=== PATIENT | female | born 1960 | race Caucasian/White ===

== ENCOUNTER → 2024-09-04 12:13 | Outpatient (BNVA) | payer OTHER, SELFPAY | PROVIDERS: Family Provider Nurse Practitioner Family; PCP Nurse Practitioner Family; Visit Provider Nurse Practitioner | DX: S59.911A Unspecified injury of right forearm, initial encounter (principal); W23.0XXA Caught, crushed, jammed, or pinched between moving objects, initial encounter | CPT/HCPCS: 73090 ==

== ENCOUNTER 2025-03-15 14:01 | Observation (INO) | payer MEDICAID, SELFPAY ==
[2025-03-15] VITALS (15 sets, daily range): BP systolic 172–223; BP diastolic 89–122; PULSE 70–93; RESP 16–22; TEMP 36.8; O2SAT 95–98; BMI 21.2
--- NOTE | 2025-03-15 14:15 | CT_ITS ---
WS: [id number] CT HEAD NONCONTRAST HISTORY: stroke symptoms, right-sided weakness and difficulty speaking. RIGHT facial droop. TECHNIQUE: Contiguous axial imaging performed through the brain. Bone and soft tissue windows. Sagittal and coronal reformats reviewed. All CT scans at [facility] use at least one of these dose optimization techniques: automated exposure control; mA and/or kV adjustment per patient size (includes targeted exams where dose is matched to clinical indication); or iterative reconstruction. DLP: 1016.65 mGy COMPARISON: 02/27/2013 No acute intracranial hemorrhage, midline shift or mass effect. Moderate atrophy and small vessel disease. Multiple small lacunar infarcts in the thalamus. Small lacunar infarct on the RIGHT may be in the internal capsule. These are not acute infarcts. Progression of chronic ischemic disease and lacunar in since 2012. Ventricles: Normal size with no hydrocephalus. Paranasal sinuses: As visualized are clear. Mastoid air cells: Well pneumatized. Calvarium and scalp: Skull is intact with no soft tissue edema or swelling. CT/CT head thrombolytic 02470 IMPRESSION: 1. No acute intracranial hemorrhage or edema. 2. Small remote lacunar infarcts in the thalami. New since 2012. There is prob ably also a chronic lacunar in the adjacent RIGHT internal capsule. Notified Priya Gregorio MD at 03/15/2025 2:24 PM.
--- NOTE | 2025-03-15 14:18 | ECG_ITS ---
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 Measurements Intervals [place] Rate: 85 P: 146 IL: 130 QRS: -39 QRSD: 89 T: 150 QT: 374 QTc: 446 Interpretive Statements ECTOPIC ATRIAL RHYTHM LEFT ATRIAL ENLARGEMENT [-0.15mV P-WAVE IN V1/V2] INDETERMINATE AXIS POSSIBLE RIGHT VENTRICULAR CONDUCTION DELAY [RSR (QR) IN V1/V2] MODERATE ST DEPRESSION [0.05+ mV ST DEPRESSION] ABNORMAL QRS-T ANGLE [QRS-T AXIS DIFFERENCE > 60] No previous ECG available for comparison Electronically Signed On 03-16-2025 08:44:15 CDT by Letha Alicia M.D. [email or web address] [email or web address]
--- NOTE | 2025-03-15 14:18 | XR_ITS ---
WS: [id number] Portable AP upright chest, 03/15/2025 Clinical Data: Weakness Comparison: Portable chest, 02/27/2013 Findings: No nodules, masses or effusions are seen. The heart is normal. The pulmonary vascularity is not increased. No pneumonia or pneumothorax is seen. The aortic arch is slightly tortuous. There is a large hiatal hernia behind the heart. There are monitor leads on the chest wall. XR/XR chest 1V portable [id number] Impression: Atherosclerosis.
--- NOTE | 2025-03-15 14:25 | PC.PHAR ---
pharmacy confirms no meds in several years
[2025-03-15 14:30] LABS: Glucose Point of Care 107 mg/dL (70-110)
--- NOTE | 2025-03-15 14:34 | W.ED.NEUROSD ---
HPI - Neuro Symptoms/Deficit General: Chief Complaint: Neuro Symptoms/Deficit Stated Complaint: R side weakness,diffucult speaking,post stroke Time Seen by Provider: 03/15/25 14:17 History of Present Illness: 65-year-old female who currently takes no medications and family states she has a history of congestive heart failure but has been off meds for a while who presents emergency room with slurred speech and facial droop with some confusion. Last known well time was last night when her and her went to bed. He says she had woken up before him and she had fallen and has an abrasion on her arm. No known head injury. He was at that point he noticed around 9 AM that she had slurred speech with quite a bit of difficulty talking and some right sided facial droop. No obvious focal motor deficits. When she walks she is slightly unsteady but does not seem to lean to 1 side of the other. No obvious visual field deficits. Family says she has improved some but still does have slurred speech. They say her speech is normally very clear. Related Data Home Medications ?Medication ?Instructions ?Recorded ?Confirmed No Known Home Medications 09/04/24 03/15/25 Allergies Allergy/AdvReac Type Severity Reaction Status Date / Time iodine Allergy Severe ALGY-Anaphy Unverified 03/15/25 15:46 laxis ibuprofen Allergy ADR-Gastrointestinal Verified 09/04/24 12:01 Upset see food Allergy ALGY-Hives Uncoded 09/04/24 12:02 Review of Systems Narrative: Constitutional symptoms: Negative except as documented in HPI. Skin symptoms: Negative except as documented in HPI. Eye symptoms: Negative except as documented in HPI. ENMT symptoms: Negative except as documented in HPI. Respiratory symptoms: Negative except as documented in HPI. Cardiovascular symptoms: Negative except as documented in HPI. Gastrointestinal symptoms: Negative except as documented in HPI. Genitourinary symptoms: Negative except as documented in HPI. Musculoskeletal symptoms: Negative except as documented in HPI. Neurologic symptoms: Negative except as documented in HPI. Psychiatric symptoms: Negative except as documented in HPI. Endocrine symptoms: Negative except as documented in HPI. PFSH ED PFSH: Social History Smoking and tobacco/nicotine status: unknown if used tobacco/nicotine NIH stroke score NIHSS: Level Of Consciousness Questions - 1b: Both Correct Level Of Consciousness Commands - 1c: Both Correct Best Gaze - 2: Normal Visual Stoner - 3: No Visual Loss Facial Palsy - 4: Partial Paralysis Motor Arm Right - 5: No Drift Motor Arm Left - 5: No Drift Motor Leg Right - 6: No Drift Motor Leg Left - 6: No Drift Limb Ataxia - 7: Absent Sensory - 8: Normal Best Language - 9: Mild/Moderate Aphasia Dysarthia - 10: Mild/Moderate Dysarthia Extinction And Inattention - 11: 0 Physical Exam Narrative: EXAM NARRATIVE: General: Alert, no acute distress. Skin: Warm, dry. Head: Normocephalic, atraumatic. Neck: Supple, trachea midline. Eye: Extraocular movements are intact. Ears, nose, mouth and throat: mucosa moist. Cardiovascular: Regular, Normal peripheral perfusion. Respiratory: Lungs are clear to auscultation, respirations are non-labored, breath sounds are equal, Symmetrical chest wall expansion. Gastrointestinal: Soft, Nontender, Non distended Musculoskeletal: Normal ROM, no deformity. Neurological: Alert and oriented, No focal neurological deficit observed. Psychiatric: Cooperative, appropriate mood & affect. Course Vital Signs: Vital signs: Vital Signs Temperature 98.2 F 03/15/25 14:10 Pulse Rate 85 03/15/25 14:36 Respiratory Rate 16 03/15/25 14:10 Blood Pressure 223/118 03/15/25 14:36 Pulse Oximetry 96 03/15/25 14:36 Oxygen Delivery Me thod Room Air 03/15/25 14:36 MDM - Neuro Symptoms/Deficit Medical Decision Making Medical decision making: Differential diagnosis for patient with focal neurologic deficit(s) includes but not limited to and based on the above HPI, review of systems and physical exam: ischemic stroke, hemorrhagic stroke and embolic stroke secondary to atrial fibrillation), TIA, Yang's palsey, metabolic encephalopathy with previous stroke. Orders placed to evaluate differential diagnosis based on the above differential, HPI and physical exam NIH Stroke Scale/Score (NIHSS) from [email or web address] on 03/15/2025 * All calculations should be rechecked by clinician prior to use RESULT SUMMARY: 4 points NIH Stroke Scale INPUTS: 1A: Level of consciousness ?> 0 = Alert; keenly responsive 1B: Ask month and age ?> 0 = Both questions right 1C: 'Blink eyes' & 'squeeze hands' ?> 0 = Performs both tasks 2: Horizontal extraocular movements ?> 0 = Normal 3: Visual stoner ?> 0 = No visual loss 4: Facial palsy ?> 2 = Partial paralysis (lower face) 5A: Left arm motor drift ?> 0 = No drift for 10 seconds 5B: Right arm motor drift ?> 0 = No drift for 10 seconds 6A: Left leg motor drift ?> 0 = No drift for 5 seconds 6B: Right leg motor drift ?> 0 = No drift for 5 seconds 7: Limb Ataxia ?> 0 = No ataxia 8: Sensation ?> 0 = Normal; no sensory loss 9: Language/aphasia ?> 1 = Mild-moderate aphasia: some obvious changes, without significant limitation 10: Dysarthria ?> 1 = Mild-moderate dysarthria: slurring but can be understood 11: Extinction/inattention ?> 0 = No abnormality Last known well time I confirmed with family that the last known well time was last evening around 9 PM. She woke up around 9 AM this morning and apparently symptoms were present at that time. Patient's screening head CT was negative but she will not allow a CTA as she had a severe allergy to contrast in the past even with pretreatment she refuses. Patient is outside the window for TNKase. She does not have extreme stroke symptoms so doubtful this is a large vessel issue and she is likely out of the window for that if it were. No neurology consult at this time. Neurology not on-call here. EKG: Time 1414. Rate 116. Sinus tachycardia, No ST-T changes, no ectopy, normal [place] & QRS intervals, This was reviewed and interpreted by myself the ER physician at 1418. CT head: No acute intracranial process. no intracranial hemorrhage, no evidence of infarct. no evidence of acute fracture.This was reviewed and interpreted by myself the ER physician. Chest x-ray: No acute process. No infiltrate. No pneumothorax. This was reviewed and interpreted by myself the emergency room physician. I also reviewed the radiology report. Lab Review: Laboratory results were reviewed and interpreted by myself the emergency room physician. No leukocytosis. No anemia. No renal failure. Urinalysis is negative for infection. Urine drug screen is negative. Alcohol level is negative. Liver enzymes are normal. I reviewed the patient's medical record. Reexamination: Patient still has significant facial droop and some slurred speech. Blood pressure has continued to rise. We discussed at length that she needs admission for further workup and initiation of preventative measures. She agrees. Swallow study being done. Patient is asking for something to drink. Consultation: I spoke with Dr. Mcclelland who is on-call for the hospitalist service who agrees to admission to the ICU. Assessment and plan: Cerebrovascular accident Malignant hypertension Slurred speech/dysarthria Right-sided facial droop ?Aspirin in the emergency room. Ultrasound of the carotids was ordered and pending. Patient needs further evaluation which may include echocardiogram and cardiac monitoring for dysrhythmias. Blood pressure control. -I discussed the patient with the hospitalist on-call who is admitting the patient. - Discussed findings and plan with patient. Answered any questions. - All laboratory values were reviewed and interpreted personally by myself, the ER physician - All imaging was reviewed and interpreted personally by myself, the ER physician. - Evaluation and treatment of this problem were appropriate in the emergency setting Lab Data 03/15/25 14:20 03/15/25 14:[address] 03/15/25 14:15 IMPRESSION: 1. No acute intracranial hemorrhage or edema. 2. Small remote lacunar infarcts in the thalami. New since 2012. There is probably also a chronic lacunar in the adjacent RIGHT internal capsule. Notified Priya Gregorio MD at 03/15/2025 2:24 PM. Chest X-Ray 03/15/25 14:18 Impression: Atherosclerosis. Laboratory Results WBC 8.01 10^3/uL (3.29-11.43) 03/15/25 14:20 RBC 5.29 10^6/uL (3.85-5.65) 03/15/25 14:20 Hgb 15.50 g/dL (11.27-16.99) 03/15/25 14:20 Hct 48.5 % (36-47) H 03/15/25 14:20 MCV 91.7 fl (85-98) 03/15/25 14:20 MCH 29.3 pg (27-33) 03/15/25 14:20 MCHC 32.0 g/dL (30-55) 03/15/25 14:20 RDW 13.3 % (12.1-15.1) 03/15/25 14:20 Plt Count 187 10^3/cmm (157-399) 03/15/25 14:20 MPV 10.4 fL (7.4-10.4) 03/15/25 14:20 Neut % (Auto) 65.2 % 03/15/25 14:20 Lymph % (Auto) 23.1 % 03/15/25 14:20 [place] % (Auto) 8.9 % 03/15/25 14:20 Eos % (Auto) 1.7 % 03/15/25 14:20 Baso % (Auto) 0.9 % 03/15/25 14:20 Neut # (Auto) 5.22 10^3/uL (1.8-7.7) 03/15/25 14:20 Lymph # (Auto) 1.9 10^3/uL (0.8-4.8) 03/15/25 14:20 [place] # (Auto) 0.7 10^3/uL (0.2-0.9) 03/15/25 14:20 Eos # (Auto) 0.1 10^3/uL (0.0-0.8) 03/15/25 14:20 Baso # (Auto) 0.1 10^3/uL (0.0-0.1) 03/15/25 14:20 Nucleated RBC % (auto) 0 % 03/15/25 14:20 Nucleated RBCs # 0.0 /100WBC 03/15/25 14:20 PT 13.40 SECONDS (12.1-14.9) 03/15/25 14:20 INR 0.95 (0.8-1.2) 03/15/25 14:20 APTT 27.6 SECONDS (23.9-36.7) 03/15/25 14:20 Sodium 141 mmol/L (136-145) 03/15/25 14:20 Potassium 4.3 mmol/L (3.5-5.1) 03/15/25 14:20 Chloride 104 mmol/L (98-107) 03/15/25 14:20 Carbon Dioxide 23 mmol/L (22-29) 03/15/25 14:20 Anion Gap 18.3 (5-19) 03/15/25 14:20 BUN 6 mg/dL (8-23) L 03/15/25 14:20 Creatinine 0.7 mg/dL (0.5-0.9) 03/15/25 14:20 GFR Calculation 84.5 mL/min (90-130) L 03/15/25 14:20 Glucose 103 mg/dL (65-115) 03/15/25 14:20 POC Glucose 107 mg/dL (70-110) 03/15/25 14:26 Calculated Osmolality 290 mOsm/kg (285-295) 03/15/25 14:20 Lactic Acid 1.0 mmol/L (0.5-2.2) 03/15/25 14:20 Calcium 9.5 mg/dL (8.5-10.5) 03/15/25 14:20 Total Bilirubin 0.4 mg/dL (0.15-1.2) 03/15/25 14:20 AST 19 U/L (0-32) 03/15/25 14:20 ALT 13 U/L (0-33) 03/15/25 14:20 Alkaline Phosphatase 107 U/L (35-105) H 03/15/25 14:20 C-Reactive Protein 6.7 mg/L (0.0-4.9) H 03/15/25 14:20 Total Protein 7.7 g/dL (6.6-8.7) 03/15/25 14:20 Albumin 4.4 g/dL (3.5-5.2) 03/15/25 14:20 Globulin 3.3 g/dL (1.3-4.6) 03/15/25 14:20 Urine Color Yellow (Yellow) 03/15/25 14:59 Urine Appearance Clear (CLEAR) 03/15/25 14:59 Urine pH 7.0 (5-7) 03/15/25 14:59 Ur Specific [place] 1.003 (1.005-1.030) L 03/15/25 14:59 Urine Protein Negative (Negative) 03/15/25 14:59 Urine Glucose (UA) Negative (Normal) 03/15/25 14:59 Urine Ketones Negative (Negative) 03/15/25 14:59 Urine Blood Negative (Negative) 03/15/25 14:59 Urine Nitrate Negative (Negative) 03/15/25 14:59 Urine Bilirubin Negative (Negative) 03/15/25 14:59 Urine Urobilinogen 0.2 mg/dL (Negative) 03/15/25 14:59 Ur Leukocyte Esterase Negative (Negative) 03/15/25 14:59 Urine RBC 0-2 /hpf (0-2) 03/15/25 14:59 Urine WBC 0-5 /hpf (0-5) 03/15/25 14:59 Ur Squamous Epith Cells 0-5 /hpf (0-5) 03/15/25 14:59 Amorphous Sediment Not Reportable 03/15/25 14:59 Urine Bacteria None seen /hpf (NONE) 03/15/25 14:59 Hyaline Casts 0-4 /lpf H 03/15/25 14:59 Salicylates < 0.3 mg/dL (3-10) L 03/15/25 14:20 Urine Opiates Screen Negative ng/mL (Negative) 03/15/25 14:59 Acetaminophen < 5.0 ug/mL (10-30) L 03/15/25 14:20 Ur Barbiturates Screen Negative ng/mL (Negative) 03/15/25 14:59 Ur Phencyclidine Scrn Negative ng/mL (Negative) 03/15/25 14:59 Ur Amphetamines Screen Negative ng/mL (Negative) 03/15/25 14:59 U Benzodiazepines Scrn Negative ng/mL (Negative) 03/15/25 14:59 Urine Cocaine Screen Negative ng/mL (Negative) 03/15/25 14:59 U Marijuana (THC) Screen Negative ng/mL (Negative) 03/15/25 14:59 Ethyl Alcohol < 10 mg/dL (0-10) 03/15/25 14:20 All radiology interpretation(s) finalized by discharge Discharge Plan Discharge Patient Disposition: Admitted As Inpatient Clinical Impression: Cerebrovascular accident, Malignant hypertension, Facial droop, Dysarthria Condition: Stable Coding Level of Care Code ED 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
[2025-03-15 14:44] LABS: Basophils # 0.1 10^3/uL (0.0-0.1); Basophils % 0.9 %; Eosinophils # 0.1 10^3/uL (0.0-0.8); Eosinophils % 1.7 %; Hematocrit 48.5 % (36-47); Lymphocytes # 1.9 10^3/uL (0.8-4.8); Lymphocytes % 23.1 %; Mean Corpuscular Hemoglobin 29.3 pg (27-33); Mean Corpuscular Volume 91.7 fl (85-98); Mean Platelet Volume 10.4 fL (7.4-10.4); Monocytes # 0.7 10^3/uL (0.2-0.9); Monocytes % 8.9 %; Neutrophils # 5.22 10^3/uL (1.8-7.7); Neutrophils % 65.2 %; Nucleated Red Blood Cells % 0 %; Platelet Count 187 10^3/cmm (157-399); Red Blood Count 5.29 10^6/uL (3.85-5.65); Red Cell Distribution Width 13.3 % (12.1-15.1); White Blood Count 8.01 10^3/uL (3.29-11.43)
[2025-03-15 14:54] LABS: INR 0.95 (0.8-1.2); Partial Thromboplastin Time 27.6 SECONDS (23.9-36.7)
[2025-03-15] MEDS: aspirin 81 mg Chew Tablet 324 MG PO (15:02)
--- NOTE | 2025-03-15 15:08 | USCV_ITS ---
Nabor Monica Age: 65 Gender: F : 1960 Exam Date: 03/15/2025 15:30 Ordering Phys: Priya Gregorio MD Technologist: Exam Location: [facility] [place] Indication: tia Risk Factors: Previous Vascular Surgery: Right Brachial BP: / Left Brachial BP: / Right Left Velocity (cm/s) Spectral Plaque Velocity (cm/s) Spectral Plaque Syst/Diast Broadening Syst/Diast Broadening 54.30/ 16.70 Prox CCA 80.40 / 25.20 53.00/ 15.40 Mid CCA 64.00 / 14.00 55.60/ 16.70 Distal CCA 36.50 / 9.50 58.20/ 12.80 Prox ICA 48.00 / 13.00 93.40/ 25.90 Mid ICA 45.80 / 13.00 97.80/ 30.30 Distal ICA 82.60 / 29.60 43.90 ECA 66.60 1.80 ICA/CCA 2.30 Vertebral Antegrade 64.50/ 19.20 cm/s 77.90/ 0.00 cm/s Bi Subclavian Bi 57.70 61.00 FINDINGS Comparison: none available. No significant elevation of systolic or diastolic velocities. Waveforms are normal. Diffuse, mild bilateral scattered calcified plaque and intimal thickening throughout the common carotid arteries and extending through the bifurcation. CONCLUSIONS Bilateral ICA stenosis less than 50%. Dr. Kimberley Laird DO (Electronically Signed) Final Date: 16 March 2025 07:49 S
[2025-03-15 15:09] LABS: Alanine Aminotransferase 13 U/L (0-33); Albumin Level 4.4 g/dL (3.5-5.2); Alkaline Phosphatase 107 U/L (35-105); Anion Gap 18.3 (5-19); Aspartate Amino Transferase 19 U/L (0-32); Blood Urea Nitrogen 6 mg/dL (8-23); C Reactive Protein 6.7 mg/L (0.0-4.9); Calcium 9.5 mg/dL (8.5-10.5); Carbon Dioxide 23 mmol/L (22-29); Chloride 104 mmol/L (98-107); Creatinine Clr Calc Pharmacy 69.1022; Globulin 3.3 g/dL (1.3-4.6); Glomerular Filtration Rate 84.5 mL/min (90-130); Glucose 103 mg/dL (65-115); Osmolality Calculated 290 mOsm/kg (285-295); Potassium 4.3 mmol/L (3.5-5.1); Sodium 141 mmol/L (136-145); Total Bilirubin 0.4 mg/dL (0.15-1.2); Total Protein 7.7 g/dL (6.6-8.7)
[2025-03-15 15:10] LABS: Acetaminophen < 5.0 ug/mL (10-30); Alcohol Level < 10 mg/dL (0-10); Salicylate < 0.3 mg/dL (3-10)
[2025-03-15 15:13] LABS: Bilirubin Urine Negative (Negative); Blood Urine Negative (Negative); Glucose Urine UA Negative (Normal); Ketones Urine Negative (Negative); Leukocyte Esterase Urine Negative (Negative); Nitrate Urine Negative (Negative); Protein Urine Negative (Negative); Specific Gravity, Urine 1.003 (1.005-1.030); Urine Appearance Clear (CLEAR); Urine Color Yellow (Yellow); Urobilinogen Urine 0.2 mg/dL (Negative)
[2025-03-15 15:16] LABS: Bacteria Urine None Seen /hpf; Hyaline Casts Urine 0-4 /lpf; RBC Urine 0-2 /hpf (0-2); Squamous Epithelial Cell Urine 0-5 /hpf (0-5); WBC Urine 0-5 /hpf (0-5)
[2025-03-15 16:00] LABS: Amphetamines Screen Urine Negative (Negative); Barbiturates Screen Urine Negative (Negative); Benzodiazepines Screen Urine Negative (Negative); Cocaine Screen Urine Negative (Negative); Opiate Screen Urine Negative (Negative); PCP Screen Urine Negative (Negative); THC Screen Urine Negative (Negative)
[2025-03-15] MEDS: labetalol 5 mg/mL SDV 20mL 20 MG IVP (16:05)
--- NOTE | 2025-03-15 17:02 | P.HP_ITS ---
Providers/Chief Complaint 2 Primary Care Provider: Luis E Buitrago Chief Complaint: R side weakness,diffucult speaking,post stroke History of Present Illness Monica Tomlin is a 65 year old female with no significant past medical history presented with slurred speech, facial distortion, abnormal gait since this morning. As per the who is at bedside reported that she was all well until 10:30 PM last night. They have watched a movie together and went to bed. He woke up at 9:00 AM this morning when he noticed that she had difficulty speaking was using sign language and had difficulty walking. As per the patient she went to bed all well last night, woke up early this morning, got up from the bed, tripped and fell. She did not hit her head but had abrasion injury to the right arm. She also noticed herself to have slow and abnormal speech. Denies any complaint of fever, cough, chest pain, shortness of breath, headache, dizziness, palpitations, nausea/vomiting, diarrhea or urinary complaints. Denies any recent history of travel or sick contact. Her last doctor's visit was 2 months ago for right arm tingling and numbness. Blood pressure at that time was found to be normal. Review of Systems 2 General: Reports: 10 or more systems reviewed and unremarkable except in HPI and below Medications/Allergies Home Medications ?Medication ?Instructions ?Recorded ?Confirmed ?Last Taken ?Type No Known Home Medications 09/04/2402/27 Unknown History Allergies Allergy/AdvReac Type Severity Reaction Status Date / Time iodine Allergy Severe ALGY-Anaphy Unverified 03/15/25 15:46 laxis ibuprofen Allergy ADR-Gastrointestinal Verified 09/04/24 12:01 Upset see food Allergy ALGY-Hives Uncoded 09/04/24 12:02 PFSH Acute 2 PFSH: Social History Smoking and tobacco/nicotine status: unknown if used tobacco/nicotine Vitals/I&O/Wt Last Vital Signs Temp 98.2 F 03/15/25 14:10 Pulse 85 03/15/25 14:36 Resp 16 03/15/25 14:10 BP 223/118 03/15/25 14:36 Pulse Ox 96 03/15/25 14:36 O2 Del Method Room Air 03/15/25 14:36 Weight last 48 hrs Weight 54.431 kg Physical Exam 2 Narrative: She is alert awake oriented x 3, not in acute distress Chest clear to auscultation bilaterally Cardiovascular normal heart sounds no murmurs Abdomen soft nontender nondistended normal bowel sounds Extremities no edema noted bilateral lower extremity Neurological-cranial nerves intact, 5/5 power bilateral upper and lower extremity, no sensory deficits, right-sided facial droop present, dysarthria Data 03/15/25 14:20 03/15/25 14:20 Micro: Microbiology 03/15/25 15:20 Blood Culture - Preliminary Blood SPECIMEN COLLECTED 03/15/25 15:15 Blood Culture - Preliminary Blood SPECIMEN COLLECTED A&P Assessment and plan (1) Cerebrovascular accident: (2) Malignant hypertension: (3) Facial droop: (4) Dysarthria: Plan Monica Tomlin is a 65 year old female with no significant past medical history presented with slurred speech, facial distortion, abnormal gait since this morning. As per the who is at bedside reported that she was all well until 10:30 PM last night. They have watched a movie together and went to bed. He woke up at 9:00 AM this morning when he noticed that she had difficulty speaking was using sign language and had difficulty walking. As per the patient she went to bed all well last night, woke up early this morning, got up from the bed, tripped and fell. She did not hit her head but had abrasion injury to the right arm. She also noticed herself to have slow and abnormal speech. #Acute stroke-etiology unknown She was last seen well at 10:30 PM last night. Patient walked into ER at 12 noon. Neurological exam-cranial nerves intact, 5/5 power bilateral upper and lower extremity, no sensory deficits, right-sided facial droop present, dysarthria CT head without contrast showedMPRESSION: 1. No acute intracranial hemorrhage or edema. 2. Small remote lacunar infarcts in the thalami. New since 2012. There is probably also a chronic lacunar in the adjacent RIGHT internal capsule. Received aspirin 324 mg x 1, labetalol 20 mg x 1 and hydralazine 10 mg x 1 IV hydralazine 10 mg every 6 hours as needed for SBP>220 and DBP>120. If blood pressure still elevated can start on Cardene drip and titrate to a goal of SBP 180-220 and DBP 100-120 Will do aspirin 81 mg daily, Lipitor 40 mg daily and plavix 75mg daily Labs reviewed and are acceptable Chest x-ray negative for acute findings UA negative U tox negative Will check echo Follow-up carotid duplex bilateral Will do MRI brain without contrast in a.m. Check lipid profile, TSH Bedside swallow eval Speech and swallow eval for N.p.o. for now PT/OT eval GI prophylaxis with IV Pepcid 20 mg twice daily DVT prophylaxis with SCD CODE STATUS discussed with patient and family, she is full code for now PDMP PDMP Reviewed: Not Reviewed Attestations 2 Medical Necessity Statement*: She needs continued hospitalization not crossing 2 midnights for management of acute stroke with telemetry monitoring, blood pressure control, physical therapy and MRI brain Time Spent in Patient Care: 45 minutes Coding Level of Care Code Acute Code for Chg Fwd Diagnoses Cerebrovascular accident I63.9 Malignant hypertension I10 Facial droop R29.810 Dysarthria R47.1 Time Spent (min) 45
[2025-03-15] MEDS: hyDRALAzine 20 mg/mL INJ 1 mL 10 MG IVP (17:11)
--- NOTE | 2025-03-15 17:19 | USCV_ITS ---
Monica Tomlin Age: 65 Gender: F : 1960 Exam Date: 03/15/2025 19:20 Ordering Phys: Denita Mcclelland MD Technologist: YVES Exam Location: [facility] [place] [facility] [place] Indication: acute stroke slurred speech, ataxia BP: 223 / 118 HR: 70 Rhythm: Sinus Technical Quality: Adequate MEASUREMENTS (Male / Female) Normal Values 2D ECHO LV Diastolic Diameter PLAX 3.0 cm 4.2 - 5.9 / 3.9 - 5.3 cm IVS Diastolic Thickness 1.2 cm 0.6 - 1.0 / 0.6 - 0.9 cm IVS Systolic Thickness 1.4 cm LVPW Diastolic Thickness 1.1 cm 0.6 - 1.0 / 0.6 - 0.9 cm LVPW Systolic Thickness 1.6 cm LVOT Diameter 1.6 cm LV Ejection Fraction 2D Teich 58.3 % LV Ejection Fraction MOD 4C 67.4 % LV Ejection Fraction MOD 2C 78.3 % LV Ejection Fraction 2C AL 81.6 % LA Diameter 2.6 cm Aorta at Sinotubular Diameter 2.7 cm IVC Diameter 0.8 cm M-MODE LA Ao Ratio MM 1.4 AV Cusp Separation MM 1.4 cm DOPPLER AV Peak Velocity 121.0 cm/s LVOT Peak Velocity 121.0 cm/s AV Area Cont Eq vti 1.7 cm squared AV Area Cont Eq pk 2.0 cm squared MV Peak Velocity 104.0 cm/s MV Area PHT 1.7 cm squared Mitral E to A Ratio 0.7 TV Peak Velocity 214.5 cm/s TR Peak Velocity 225.0 cm/s TR Peak Gradient 20.3 mmHg TV Peak E Velocity 35.0 cm/s PV Peak Velocity 73.0 cm/s FINDINGS Left Ventricle Moderate to severe concentric left renal hypertrophy. Contracted LV cavity. Normal ejection fraction of 67%. The left-ventricular wall appears to have a thin layer of compaction and a thick layer of noncompaction with a prominent trabeculation Right Ventricle Slight thickening of the RV free wall. Normal ejection fraction with Right Atrium Appears to be normal size Left Atrium Appears to be of normal size Mitral Valve Mild mitral annular calcification. Thickened mitral valve. Aortic Valve No gross abnormalities noted Tricuspid Valve Mild tricuspid valve regurgitation. Pulmonic Valve No gross abnormalities noted Pericardium No pericardial effusion. Aorta Normal aortic annulus size. IVC Normal IVC dimension with >50% respiratory change of the inferior vena cava. CONCLUSIONS 1. 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 LV ejection fraction of 67% 3. Normal RV size and ejection fraction with minimal hypertrophy of the free wall 4. Normal atrial sizes 5. Mild tricuspid valve regurgitation. Estimated pulmonary artery peak systolic pressure 23 mmHg 6. No pericardial effusion No similar previous studies are available for comparison Dr Letha Alicia MD [facility] (Electronically Signed) Final Date: 15 March 2025 22:33 S
[2025-03-15 18:19] LABS: Influenza A NEGATIVE (Negative); Influenza B NEGATIVE (Negative); Respiratory Syncytial Virus Ce NEGATIVE (Negative); SARS-CoV-2 PCR NEGATIVE (Negative)
[2025-03-15] MEDS: famotidine 20 mg/2 mL INJ IVP (19:20)
--- NOTE | 2025-03-15 22:05 | PC.NURSE ---
Hold PO Dr Méndez gave order to hold all PO meds due to suspected stroke and failed bedside swallow assessment in ER.
[2025-03-16] VITALS: BP 209/113; PULSE 76; RESP 17; O2SAT 96
[2025-03-16 00:30] VITALS: BP 208/102; PULSE 78; RESP 14; O2SAT 95
[2025-03-16 01:00] VITALS: BP 182/111; PULSE 86; RESP 16; O2SAT 95
[2025-03-16 01:30] VITALS: BP 184/105; PULSE 70; RESP 17; O2SAT 95
[2025-03-16] MEDS: hyDRALAzine 20 mg/mL INJ 1 mL 10 MG IVP (01:34)
[2025-03-16 02:00] VITALS: BP 189/158; PULSE 92; RESP 19; O2SAT 95
--- NOTE | 2025-03-16 02:24 | PC.NURSE ---
AMA Answered patient's call light to find her sitting on edge of bed attempting to get up. was at bedside. Patient stated that she wanted to leave the hospital. Patient stating that she needs to eat and drink (NPO due to stroke). Stating that she can't sleep and can't do this anymore. Patient correctly answered orientation questions. Explained to patient that she was within her right to leave. Explained to her that she was at an increased risk of another stroke or other problems. Patient still expressed desire to leave. Called Dr Méndez to inform him of patient's decision. Dr Méndez to bedside. He explained to patient that she was at an increased risk of morbidity and mortality and that she would be risking her life if she decided to leave. Patient still expressed desire to leave. Patient agreed to sign AMA form. Removed monitoring equipment from patient and removed her IV. Transported patient to her 's vehicle in parking lot via wheelchair.
--- NOTE | 2025-03-16 06:57 | PM.CCNAC ---
Critical Care Event Note The high probability of a clinically significant, sudden or life threatening deterioration of the patient's [] system(s) required my full and direct attention, intervention and personal management. The critical care time is as shown. This time is in addition to time spent performing any reported procedures but includes the following: [x] Data and vital sign review and interpretation [x] Patient assessment, examination and intervention [x] Documentation [x] Medication orders and management Critical Care Time Code activated: No Critical Care Time (min): 0 Additional information about critical care time: - At roughly 2 AM, patient wanted to leave the hospital AGAINST MEDICAL ADVICE, she wanted to go home - She was examined, at bedside, she is alert oriented x 3, following all commands, - She is adamant about going home, she tells me that I do not understand, - Discussed with patient, , and nursing staff at bedside morbidity and mortality against leaving the hospital AGAINST MEDICAL ADVICE, she voiced understanding, all questions answered discussed her her admission for CVA, risk of worsening CVA symptoms, poor outcome, morbidity and mortality, recurrent CVA, intracranial bleed, however she was adamant about leaving, she voiced outside, all questions answered - Patient left AGAINST MEDICAL ADVICE Coding Level of Care Code Acute Code for Chg Fwd
== END 2025-03-16 02:16 | disposition left against medical advice (07) ==
LOC: ER 16:02 → ER IP 03-16 05:35 → ICU 03-16 05:35
PROVIDERS: Admitting Provider Internal Medicine; Emergency Provider Emergency Medicine; PCP Nurse Practitioner Family; Visit Provider Internal Medicine
DX: I63.9 Cerebral infarction, unspecified (principal); R29.704 NIHSS score 4; I10 Essential (primary) hypertension; Z53.29 Procedure and treatment not carried out because of patient's decision for other reasons
CPT/HCPCS: 36415; 36416; 70450; 71045; 80053; 80306; 80307; 81001; 82962; 83605; 85025; 85610; 85730; 86140; 87040; 87637; 93005; 93306; 93880; 94664; 96374; 96375; 99285; G0378; J0360; J3490; J9999

== ENCOUNTER → 2025-05-10 13:22 | Outpatient (BNVA) | payer MEDICAID, SELFPAY | PROVIDERS: PCP Family Medicine; Visit Provider Family Medicine | DX: I10 Essential (primary) hypertension (principal) | CPT/HCPCS: 80053; 80061 ==